=== PATIENT | female | born 1955 | race Caucasian/White ===

== ENCOUNTER 2022-11-14 07:03 | Emergency (ER) | payer OTHER ==
[~2022-11-14] VITALS: Ht 170.1 cm; Wt 83.9 kg
[~2022-11-14 07:03] MED LIST: BISOPROLOL/HCTZ1 TA2 PO; CRESTOR20 M1 PO; HYDROCODONE BIT1 T11 PO; NAPROSYN500 MG PO; OMEPRAZOLE40 MG PO
[2022-11-14] MEDS ORDERED: CITALOPRAM10 MG PO (07:15)
[2022-11-14 07:40] LABS: BASO # 0.1 10*3/uL (0.0-0.1); BASO % 0.7 % (0.0-1.0); EOS # 0.5 10*3/uL (0.0-0.4); HEMATOCRIT 45.5 % (37.0-47.0); LYMPH # 1.4 10*3/uL (1.3-4.4); MEAN CELL VOLUME 102.7 fl (81.0-99.0); MEAN CORPUSCULAR HGB 33.6 pg (27.0-31.0); MEAN CORPUSCULAR HGB CONC 32.7 g/dl (33.0-37.0); MEAN PLATELET VOLUME 8.8 fl (9.6-12.3); MONO # 0.5 10*3/uL (0.1-1.0); MONO % 4.9 % (3.0-9.0); NEUT # 7.5 10*3/uL (2.3-7.9); NEUT % 75.1 % (47.0-73.0); PLATELET COUNT AUTOMATED 293 10*3/uL (130-400); RED BLOOD COUNT 4.43 10*6/uL (4.10-5.10); RED CELL DISTRI WIDTH 12.4 % (0-14.5)
[2022-11-14 07:50] LABS: ACT PARTIAL THROMBO TIME 26.4 SECONDS (20.0-32.1); INTERNATIONAL NORM RATIO 1.1 (2.0-3.5)
[2022-11-14 08:30] LABS: ALKALINE PHOSPHATASE 84 U/L (46-116); BUN 11 mg/dl (9-23); CHLORIDE 105 mmol/L (98-107); LIPASE 46 U/L (12-53); POTASSIUM 4.1 mmol/L (3.4-5.1); SGPT/ALT 17 U/L (10-49); TOTAL PROTEIN 7.5 gm/dL (6.0-8.0)
[2022-11-14] MEDS ORDERED: HYDROCODONE-AC1 EAC1 PO (09:16)
== END 2022-11-14 10:43 | disposition home or self-care (01) ==
LOC: ED 07:03
PROVIDERS: Internal Medicine
DX: S22.31XA Fracture of one rib, right side, initial encounter for closed fracture (principal); M25.511 Pain in right shoulder; F32.A Depression, unspecified; Z88.2 Allergy status to sulfonamides; Z90.49 Acquired absence of other specified parts of digestive tract; Z98.51 Tubal ligation status; Z98.890 Other specified postprocedural states; W01.0XXA Fall on same level from slipping, tripping and stumbling without subsequent striking against object, initial encounter; Y93.89 Activity, other specified; Y92.89 Other specified places as the place of occurrence of the external cause; Y99.8 Other external cause status

== ENCOUNTER → 2023-11-05 | Outpatient (CLI) | payer MEDICARE ==
[~2023-11-05] MED LIST changes: +CITALOPRAM10 MG PO; +HYDROCODONE-AC1 EAC1 PO
== END | disposition home or self-care (01) ==
LOC: RESCLI 13:29
PROVIDERS: ATTEND Student in an Organized Health Care Education/Training Program
DX: E78.5 Hyperlipidemia, unspecified (principal); F41.9 Anxiety disorder, unspecified; Z79.899 Other long term (current) drug therapy; Z88.2 Allergy status to sulfonamides